=== PATIENT | female | born 1990 | race Caucasian/White ===

== ENCOUNTER 2018-06-14 21:54 | Inpatient (IN) ==
[2018-06-14 22:59] LABS: INFLUENZA A NEGATIVE (NEGATIVE); INFLUENZA B NEGATIVE (NEGATIVE)
[2018-06-14] MEDS ORDERED: LR 1,000 ML IV ONE (23:29)
[2018-06-14] MEDS ORDERED: ZOFRAN IV ONE (23:30)
[2018-06-15] LABS: BASO# 0.02 X1000 (0.0-0.2); BASO% 0.1 % (0.0-0.8); EOS# 0.16 X1000 (0.0-0.7); EOS% 1.1 % (0.0-10.0); HEMATOCRIT 40.5 % (37.0-47.0); HEMOGLOBIN 13.4 g/dL (12.0-16.0); IMM GRAN# 0.04 X1000 (0.0-0.04); IMM GRAN% 0.3 % (0.0-0.5); LYMPH# 1.52 X1000 (1.2-3.4); LYMPH% 10.8 % (20.5-51.1); MCH 27.2 PG (27-31); MCHC 33.1 g/dL (33-37); MCV 82.2 FL (81-99); MONO# 0.47 X1000 (0.11-0.59); MONO% 3.3 % (1.7-9.3); NEUT# 11.92 X1000 (1.4-6.5); NEUT% 84.4 % (42.2-75.2); PLT 195 X1000 (130-400); RBC 4.93 XMIL (4.2-5.4); RDW 15.2 % (11.5-14.5); WBC 14.13 X1000 (4.8-10.8)
[2018-06-15 00:08] LABS: INR 0.92; PROTIME 12.8 Seconds (11.0-16.0)
[2018-06-15 00:09] LABS: PTT 29.7 Seconds (22.3-41.8)
[2018-06-15 00:13] LABS: AGAP 14; ALBUMIN 4.1 g/dL (3.5-5.0); ALKALINE PHOSPHATASE 51 U/L (32-104); BUN 8 mg/dL (8-22); CALCIUM 9.5 mg/dL (8.8-10.2); CHLORIDE 104 mmol/L (98-107); COSMO 284; CREATININE 0.6 mg/dL (0.5-0.9); ESTIMATED GFR > 60; GLUCOSE 105 mg/dL (70-104); GOT 21 U/L (10-30); GPT 25 U/L (10-36); LIPASE 20 U/L (13-60); MAGNESIUM 1.9 mg/dL (1.5-2.7); POTASSIUM 3.9 mmol/L (3.5-5.1); SODIUM 143 mmol/L (136-145); TCO2 24 mmol/L (25-35); TOTAL PROTEIN 7.4 g/dL (6.3-8.3)
[2018-06-15] MEDS ORDERED: REGLAN IV ONE (00:41)
[2018-06-15 00:53] LABS: URINE SOURCE CLEAN CATCH
[2018-06-15 01:06] LABS: BILIRUBIN URINE NEGATIVE (NEGATIVE); BLOOD URINE TRACE (NEGATIVE); CLARITY VERY CLOUDY (CLEAR); COLOR YELLOW; GLUCOSE URINE NEGATIVE (NEGATIVE); KETONE URINE 2+(Moderate) mg/dL (NEGATIVE); LEUKOCYTES URINE 1+ (NEGATIVE); NITRITE URINE NEGATIVE (NEGATIVE); PROTEIN URINE NEGATIVE (NEGATIVE); UROBILINOGEN URINE NORMAL
[2018-06-15 01:20] LABS: URINE EPITHELIAL CELLS <10 /HPF (<10); URINE RBC <10 /HPF (<10); URINE WBC <10 /HPF (<10)
[2018-06-15 01:21] LABS: URINE BACTERIA 4+ /HFP; URINE SMALL ROUND CELLS TRANSITIONAL PRESENT
[2018-06-15] MEDS ORDERED: ZOSYN 3.375 GM in NS 50 ML IV ONE (02:15)
[2018-06-15] MEDS ORDERED: LR 1,000 ML IV ONE (02:17)
--- NOTE | 2018-06-15 02:25 | PROVIDER DOCUMENTATION ---
This chart was entered by Marta Segovia Scribe, acting as scribe for Moe Brunson MD. HPI-General Adult - General Chief Complaint: Vomiting Stated Complaint: vomiting Time Seen by Provider: 06/14/18 22:48 Source: patient Allergies/Adverse Reactions: Patient Allergies Allergy/AdvReac Type Severity Reaction Status Date / Time hydrocodone AdvReac VOMITING Verified 06/13/18 18:42 Home Medications: Home Medication List Medication Instructions Recorded Confirmed Last Taken Type Ibuprofen [Motrin] 200 mg PO DAILY 06/13/18 06/13/18 06/13/18 History 4 po Nitrofurantoin Monohyd/M-Cryst 100 mg PO BID #14 cap 06/13/18 Unknown Rx [Macrobid 100 mg Capsule] Ondansetron [Zofran] 4 mg PO Q6H PRN PRN #20 tab 06/13/18 Unknown Rx - History of Present Illness -Gen Adult Nature of Presenting Problems: 28 y/o female patient presents to er with c/o vomiting, nausea and abdominal pain . Pt went to [facility] yesterday for same symptoms and was diagnosed with presumed uti. Pt was prescribed Macrobid but has not improved Location of Pain/Injury: reports: abdomen, generalized Quality of Pain: reports: aching Severity: reports: severe Onset/Duration: reports: 24 hours ago Timing: reports: getting worse Associated Symptoms: reports: nausea, vomiting Recently seen or treated by another doctor?: Yes Review of Systems - Adult - REVIEW OF SYSTEMS - ADULT Constitutional: reports: see HPI. denies: fever, fatique Eyes: reports: no symptoms reported Ears, Nose, Mouth & Throat: reports: no symptoms reported Cardiovascular: reports: no symptoms reported Respiratory: reports: no symptoms reported Gastrointestinal: reports: abdominal pain, nausea, vomiting. denies: constipation, diarrhea Genitourinary: reports: no symptoms reported Musculoskeletal: reports: no symptoms reported Integumentary: reports: no symptoms reported Neurological: reports: no symptoms reported Psychiatric: reports: no symptoms reported Endocrine: reports: no symptoms reported Hematologic/Lymphatic: reports: no symptoms reported Allergic/Immunologic: reports: no symptoms reported All Other Systems: Reviewed and Negative Past History - Adult - PAST MEDICAL HISTORY-ADULT Review of Records: reports: Old Records Reviewed, Nursing Assessment Review, Medications Reviewed, Social history reviewed & non-contributory. Major Childhood Illnesses: reports: denies history Cardiovascular: reports: denies history Respiratory: reports: denies history Gastrointestinal: reports: denies history Obstetrical/Gynecological: reports: denies history Genitourinary: reports: denies history Musculoskeletal: reports: denies history Neurological: reports: denies history Endocrine/Immune: reports: hypoglycemia Other Conditions: reports: denies history - PRIOR SURGERIES/PROCEDURES Surgical/Procedure History: reports: other (left knee 3x) - IMMUNIZATION STATUS Childhood Immunizations: See Nurse Assessment Flu Vaccine: See Nurse Assessment - FAMILY HISTORY Family History: reviewed, not pertinent - SOCIAL HISTORY Smoking: cigarettes, less than 1 pack/day Provider spent 3-5 mins advising pt. on dangers of tobacco.: Discussed manners to quit use, and f/u contacts for add'l counseling. Physical Exam-General - PHYSICAL EXAM-ADULT Initial Vital Signs Reviewed: Yes - CONSTITUTIONAL General Appearance: alert, severe distress, obese - EYES Eyes: PERRL/EOMI, pink conjunctivae - HEAD, EARS, NOSE, MOUTH & THROAT HENMT: normocephalic/atraumatic, moist mucous membranes - NECK Neck: non-tender, full range of motion, supple - RESPIRATORY Respiratory: chest non-tender, lungs clear, normal breath sounds - CARDIOVASCULAR Cardiovascular: normal peripheral pulses, regular rate, rhythm - GASTROINTESTINAL (ABDOMEN) Abdominal Exam: normal bowel sounds, guarding (mild), tenderness (generalized but more in mid abdomen). 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, grossly normal - PSYCHIATRIC Psych/Mental Status: normal thought content, normal thought process, oriented x 3 Progress - PLAN OF CARE/RESULTS Progress/Plan/Lab Results: Vital Signs - 8 hr 06/14/18 22:02 Temperature 98.0 F Pulse Rate 70 Respiratory Rate 20 Blood Pressure 141/82 O2 Sat by Pulse Oximetry 100 Laboratory Results - last 24 hr 06/14/18 22:05 Influenza A (Rapid) NEGATIVE Influenza B (Rapid) NEGATIVE Orders Category Date Time Status Flu [INFLUENZA SCREEN PL] Stat Lab 06/14/18 22:05 Completed Result Diagrams: 06/14/18 23:04 06/14/18 23:04 - CT/MRI 1 CT Study: Abdomen, Pelvis Impression: Abnormal (subtle increased density in lateral aspect of gallbladder ; consideration include gallstone or polyp; consider right upper quadrant ultrasound) - CONSULTS/PCP/HOSPITALIST Notification #1 *Consult/PCP/Hospitalist*: Dr. Rodgers Time Discussed: 02:14 Consult Disposition: Admit Departure - Departure Date of Disposition Decision: 06/15/18 Time of Disposition Decision: 02:14 DIAGNOSIS: Acute cholecystitis Abdominal pain Qualifiers: Abdominal location: unspecified location Qualified Code(s): R10.9 - Unspecified abdominal pain Disposition: ADMITTED INPATIENT 09 Certified Medical Emergency: Emergent Condition: Serious - Critical Care Note This patient required my direct & personal management of CC.: No Attestation - Physician/ SARAN Attestation Patient care was provided by Advanced Practice Provider:: No The physician spent face to face time with patient:: Yes Advanced Practice Provider documentation review:: Supervising physician onsite and consulted in the evaluation and care of this patient. The physician did have a face to face encounter with the patient. This chart was documented by the indicated scribe, (Marta Segovia Scribe) and accurately reflects the services I performed and decisions made by me, Moe Brunson MD, as attested by the provider's signature.
[2018-06-15] MEDS ORDERED: NS 1,000 ML IV ONE (02:47)
[2018-06-15] MEDS: MORPHINE IV PRN ×9 (03:10→21:53)
[2018-06-15] MEDS: ZOFRAN IV PRN ×4 (04:40→17:14)
--- NOTE | 2018-06-15 08:53 | Diag Imaging Result Doc PS360 ---
EXAM: CT ABD/PELVIS W/IV CONT ONLY 06/14/2018 HISTORY: abdominal pain; vomiting TECHNIQUE: This exam was performed using automated exposure control, adjustment of mA or kV according to patient size, and/or use of iterative reconstruction technique. COMMENT: There is minimal platelike atelectasis in the medial portion of the right middle lobe which is slightly worse than on 06/13/2018. The liver, spleen, adrenal glands, and pancreas are normal in appearance. The kidneys are without evidence of hydronephrosis or mass. There are no apparent gallstones in the gallbladder is not inflamed in appearance. There is no evidence of bowel obstruction. The aorta is normal in caliber. There is no evidence of significant adenopathy. Pelvis: The appendix is normal in appearance. There is free fluid in the cul-de-sac. Both ovaries are somewhat prominent the left measuring in excess of 4 cm in greatest dimension the right measuring 3.1 cm in diameter. These findings were also present at the time the previous study. The urinary bladder is not distended. The regional skeleton is intact. IMPRESSION: Nonspecific free pelvic fluid. No significant change since 06/13/2018. Electronically signed by Gamaliel Abad 06/15/2018 8:50 AM
[2018-06-15] MEDS ORDERED: VENTOLIN HFA INH PRN (12:14)
[2018-06-15] MEDS: LR 1,000 ML IV SCH ×2 (12:38→22:04)
[2018-06-15] MEDS: ZOSYN 3.375 GM in NS 50 ML IV SCH ×2 (12:38→17:59)
[2018-06-15] MEDS: PROTONIX IV SCH (12:39)
[2018-06-15] MEDS: LOVENOX SUBQ SCH (12:39)
[2018-06-15] MEDS: SODIUM CHLORIDE 0.9% INJ SCH (12:39)
--- NOTE | 2018-06-15 15:07 | HISTORY AND PHYSICAL ---
DATE: 06/15/2018 HISTORY OF PRESENT ILLNESS: This is a 28-year-old female she had vague upper abdominal and lower abdominal discomfort over the last several days. She had been in the ER twice, re-presented last night for further evaluation. She was initially treated for urinary tract infection but had no improvement in her symptoms. She has had worsening nausea associated with this and even some emesis. She denies jaundice or fevers. No blood in her stools and bowel function otherwise been normal for her. She is admitted for further workup. CT scan showed nonspecific pelvic fluid, enlarged ovaries bilaterally, but no other acute inflammatory processes. Her appendix was normal. Gallbladder showed no inflammation or biliary dilation or pancreatic lesions. MEDICAL HISTORY: Significant for asthma and obesity and anxiety. SURGICAL HISTORY: She has had knee surgeries but no abdominal operation. SOCIAL HISTORY: She does smoke 1/2 pack a day. No alcohol. 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 FAMILY HISTORY: Negative for cancer. REVIEW OF SYSTEMS: Ten point negative. PHYSICAL EXAM: Temperature 99.3 degrees, pulse 71, blood pressure 128/46, oxygen saturation 97% on room air.General: She is alert in no acute distress. HEENT: No scleral icterus or cervical masses. Cardiovascular: Normal rate. Pulmonary: No increased work of breathing. Abdomen: Obese but soft. There is no peritonitis, vague tenderness over the upper quadrants. Integument: Warm dry without jaundice. Psychiatric: Appropriate affect. Neurologic: No gross deficits . Lymphatic: No cervical, axillary or inguinal adenopathy. Peripheral vascular: She does have some lower extremity edema. LABS: White count is 14, hematocrit 40, platelets 195,000, INR 0.92. Creatinine 0.6. LFTs are normal. Lipase normal, lactate is normal. Urinalysis does have some white blood cells. Influenza is negative. I cannot tell if test was checked. Ultrasound has been done but report pending. ASSESSMENT AND PLAN: A 28-year-old female with vague abdominal discomfort. Symptoms do sound consistent with gallbladder etiologies, could be a gastroenteritis type picture or even a gastritis type picture. She does have some esophagitis symptoms as well. Will continue her workup. She has been told she has had a HIDA scan that was normal in the past. Her CT scan is unrevealing other than some prominent ovaries possibly this was an ovarian cyst, could be a urinary tract infection as well. Will check her results of her ultrasound and perform a HIDA as indicated and maybe even upper endoscopy. Will resume her home medications, on antibiotics for urinary tract infection, will keep her NPO, continue her hydration, antiemetics. cc: Ryan Rodgers MD
[2018-06-15] MEDS: REGLAN IV SCH (21:54)
[2018-06-16] MEDS: PROTONIX IV SCH ×2 (01:27→13:19)
[2018-06-16] MEDS: ZOSYN 3.375 GM in NS 50 ML IV SCH ×4 (01:27→17:25)
[2018-06-16] MEDS: MORPHINE IV PRN ×5 (06:08→21:52)
[2018-06-16] MEDS: REGLAN IV SCH ×3 (06:08→16:59)
[2018-06-16] MEDS: LR 1,000 ML IV SCH ×3 (06:41→17:44)
[2018-06-16] MEDS: OFIRMEV 1000 MG/ISOTONIC SOLN 1,000 MG/100 ML BOTTLE IV PRN (08:22)
[2018-06-16] MEDS: ZOFRAN IV PRN ×3 (08:31→21:51)
--- NOTE | 2018-06-16 10:06 | Diag Imaging Result Doc PS360 ---
US GB < RUQ (LIMITED) - 06/15/2018 INDICATION: abdominal pain; vomiting; r/o cholecystitis TECHNIQUE: COMPARISON: CT from 06/15/2018 FINDINGS: Liver, gallbladder, pancreas, and right kidney are normal. Common bile duct measures 4 mm. Aorta, IVC, and main portal vein are patent. IMPRESSION: Negative exam. Electronically signed by Shon Khan 06/16/2018 10:04 AM
[2018-06-16] MEDS: BREO ELLIPTA 100/25 MCG INH INH SCH (11:34)
[2018-06-16] MEDS: LOVENOX SUBQ SCH (13:18)
[2018-06-16] MEDS: SODIUM CHLORIDE 0.9% INJ SCH (13:19)
--- NOTE | 2018-06-16 14:16 | GENERAL SURGERY PROGRESS NOTE ---
DATE: 06/16/2018 SUBJECTIVE: She says she is hungry and thirsty. No fevers. No tachycardia. OBJECTIVE: Vital signs: Blood pressure 115/56, oxygen saturation 97%. General: She is alert. Abdomen: Soft. Cardiovascular: Normal rate. Pulmonary: No increased work of breathing. LABS: Pending. IMAGING: Abdominal ultrasound shows no acute abnormality. No gallstones. No biliary dilation. ASSESSMENT AND PLAN: This is a 28-year-old female with nausea, vomiting, epigastric abdominal discomfort. We will check a HIDA scan. I have also asked Dr. Barbour to see her to evaluate for possible gastric or esophageal etiology. In the meantime, we will continue antibiotics for UTI. She is on a PPI, Reglan. We will give her some sips of liquids after her HIDA scan. cc: Ryan Rodgers MD
--- NOTE | 2018-06-16 14:25 | GASTROENTEROLOGY CONSULTATION ---
DATE: 06/16/2018 REFERRING PHYSICIAN: Dr. Ryan Rodgers. REASON FOR CONSULTATION: Abdominal pain, nausea, and vomiting. HISTORY: Ms. Gaspar is a 28-year-old female, who has new onset of symptoms in the form of abdominal pain in the periumbilical region, right upper quadrant, and radiating to the back for the last 3 days. She initially came [facility] but did not get any better, and she came to the ER on Saturday night and was given IV pain medicine, IV antiemetics, fluids and was discharged home. Her symptoms persisted, and she came to the ER on 06/14/2018 for admission. She is currently being worked up for gallbladder pathology. So far, her ultrasound of the abdomen is negative, and the CT scan of the abdomen and pelvis was also negative for any kind of gallbladder pathology. The patient complains of abdominal discomfort in the periumbilical, right upper quadrant, the right upper back. Before the onset of these symptoms, she experienced discomfort in the left lower side of the abdomen as well. She complains of intermittent nausea and vomiting. She denies any vomiting blood or passing blood in the stools. She has not had a bowel movement since Saturday, 3 days ago. She denies any previous history of constipation or diarrhea. The patient is scheduled for HIDA scan per General Surgery. Gastroenterology was consulted for further management. PAST MEDICAL HISTORY: Asthma, obesity, anxiety. The patient is trying to lose weight. She has cut down sodas. PAST SURGICAL HISTORY: Knee surgeries. SOCIAL HISTORY: She smokes half a pack a day. No history of alcohol. 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 FAMILY HISTORY: No history of any Crohn's disease. REVIEW OF SYSTEMS: She denies any fevers, rigors, chills, chest pain, shortness of breath, dyspnea. Denies any vomiting blood or passing blood in the stools. Denies any major arthritis. Does take NSAIDs, like ibuprofen, as needed. She does drink tea every day. Denies any neurologic complaints. MEDICATIONS IN THE HOSPITAL: 1. Lovenox. 2. Fluticasone/vilant 1 puff inhaled daily. 3. Lactate Ringer 100 mL/hr. 4. Reglan 5 mg IV q.6 hours. 5. Morphine 2 mg IV q. 2 hours. 6. Tylenol IV q.6 hours. 7. Zofran. 8. Protonix IV b.i.d. 9. Zosyn IV q.6 hours. She is currently n.p.o. PHYSICAL EXAMINATION: Vital Signs: Temperature 98.3, pulse 59, respiratory rate 18, blood pressure 170/66, saturating 97% on room air. Body weight of 285 pounds. BMI of 44.6 kg. General: She is obese, lying in bed in no acute distress. HEENT: No pallor. No icterus. Pupils equal and reactive to light. Neck: Supple. Abdomen: Obese. Discomfort in the pelvic region. No rebound or guarding. Extremities: No cyanosis, clubbing, edema. Neurologic: She is alert, awake, oriented x3. LABORATORY DATA: Hemoglobin and hematocrit is 13.4 and 40.5, white count of 14.13, platelet count of 195,000. INR 0.92. PT of 12.8. PTT of 29.7. Sodium 140, potassium 3.9, chloride 104, bicarb 24, anion gap of 14. BUN of 8, creatinine 0.6, glucose of 105. Calcium 9.5, magnesium 1.9. Total bilirubin is 0.4. AST 21, ALT 25. Alkaline phos 51. Total protein 7.4. Albumin of 4.1. Lipase of 20. Lactate of 1.7. Urinalysis showing cloudy 2+ ketones and 1 + white cells. Flu screen is negative. Blood culture x2 have been drawn and currently pending. Ultrasound and CT scan as described in HPI negative. Old CT scan showed evidence of nonspecific free pelvic fluid and evidence of prominent ovary on the left side measuring 4 cm and the right side measuring 3.1 cm. Plate-like atelectasis in the medial portion of the right middle lobe was noted. IMPRESSION AND PLAN: 1. Abdominal pain. 2. Nausea and vomiting. 3. Obesity. RECOMMENDATIONS: We will follow results of HIDA scan. We will keep her on IV fluids, IV Proton pump inhibitors. She has been given a trial of Reglan. We will need to hold Reglan if patient develops side effects like tardive dyskinesia. We will schedule her for EGD tomorrow under anesthesia to evaluate her symptoms. The risks, benefits, indications, and alternatives discussed with the patient and all questions answered. The patient will continue to lose weight. She will continue follow gastroesophageal reflux life changes. Further recommendations pending hospital course. The above plan was discussed with the patient and all questions were answered. Please call us with any further questions. cc: MD Ryan Ramos MD MTDD
--- NOTE | 2018-06-16 16:56 | Diag Imaging Result Doc PS360 ---
HIDA SCAN W/ EJECTION FRACTION - 06/16/2018 INDICATION: abdominal pain COMPARISON: None FINDINGS: 5.5 millicuries of Choletec was administered. There is normal uptake and clearance by the liver. There is normal excretion into the gallbladder and small bowel. A fatty meal was given. The gallbladder ejection fraction is 28%. IMPRESSION: Slightly subnormal gallbladder ejection fraction, which may represent chronic cholecystitis or biliary dyskinesia. An abnormally low ejection fraction (less than 35%) can be present in patients without gallbladder dyskinesis or chronic cholelithiasis to have other medical conditions. These include but are not limited to, patients with diabetic mellitus, irritable bowel syndrome, , gastroenteritis. peptic ulcer disease, and patients receiving morphine or nifedipine. Electronically signed by Shon Khan 06/16/2018 4:53 PM
[2018-06-17] MEDS: PROTONIX IV SCH (00:52)
[2018-06-17] MEDS: SODIUM CHLORIDE 0.9% INJ SCH (00:52)
[2018-06-17] MEDS: ZOSYN 3.375 GM in NS 50 ML IV SCH ×4 (00:52→18:04)
[2018-06-17] MEDS: REGLAN IV SCH ×2 (00:52→06:08)
[2018-06-17] MEDS: MORPHINE IV PRN ×8 (01:04→22:16)
[2018-06-17] MEDS: BREO ELLIPTA 100/25 MCG INH INH SCH (08:22)
[2018-06-17] MEDS: ZOFRAN IV PRN ×4 (09:02→22:16)
[2018-06-17] MEDS ORDERED: DIPRIVAN 1% ONE (10:03)
[2018-06-17] MEDS ORDERED: XYLOCAINE-MPF 2% ONE (10:12)
--- NOTE | 2018-06-17 10:43 | OPERATIVE NOTE ---
PROCEDURE DATE : 06/17/2018 PROCEDURE PERFORMED: Upper gastrointestinal endoscopy. PROVIDER: Pb Sesay MD INDICATION: Nausea, vomiting, abdominal pain. MEDICATIONS: Monitored Anesthesia Care DESCRIPTION OF PROCEDURE: Prior to the procedure, a history and physical was performed, and the patient's medications and allergies were reviewed. The patient's tolerance to previous anesthesia was also reviewed. The risks and benefits of the procedure and the sedation options and risks were discussed with the patient. All questions were answered, and informed consent was obtained. After reviewing the risks and benefits, the patient was deemed in satisfactory condition to undergo the procedure. After informed consent was obtained, the endoscope was passed under direct visualization. Throughout the procedure, the patient's blood pressure, pulse and oxygen saturations were monitored continuously. The endoscope was introduced through the mouth and advanced to the second part of the duodenum. The upper GI endoscopy was accomplished without difficulty. The patient tolerated the procedure well. COMPLICATIONS: No immediate complications. ESTIMATED BLOOD LOSS: Minimum. FINDINGS: - Normal esophagus - Small hiatal hernia seen on retroflexion in the stomach. Random gastric biopsies were obtained to rule out H. pylori - Normal duodenum. IMPRESSION: - Small hiatal hernia - There was no etiology on upper GI endoscopy to explain the patient's nausea, vomiting and abdominal pain. RECOMMENDATIONS: 1. We will transition the patient's IV pantoprazole to p.o. once daily. 2. Continue antiemetics as needed. 3. The patient is okay to be discharged from a GI perspective with outpatient followup. I do not think that her findings on her HIDA scan would explain her symptoms, although empiric cholecystectomy may be warranted in the future if the patient does not respond to conservative management. cc: Ryan Rodgers MD [facility]
[2018-06-17] MEDS: LR 1,000 ML IV SCH ×2 (11:32→13:06)
[2018-06-17] MEDS: LOVENOX SUBQ SCH (13:06)
--- NOTE | 2018-06-17 19:07 | GENERAL SURGERY PROGRESS NOTE ---
DATE: 06/17/2018 SUBJECTIVE: Still having some nausea. The pain is better. No fevers. No tachycardia. She had an EGD this morning that did not show any acute findings. LABORATORY: No new labs yet this morning. She had a HIDA scan that showed a depressed ejection fraction. ASSESSMENT AND PLAN: This is a 28-year-old female with vague upper abdominal discomfort, nausea. She has biliary dyskinesia. The stomach is clear of mucosal lesions. Discussed with her risks of bleeding, infection, damage to surrounding structures, persistent symptoms, bile leak, conversion to open, possibility that she will have residual symptoms even though her gallbladder appears [*] on HIDA scan. She understands and consents to laparoscopic cholecystectomy. Right now we have her posted for afternoon. We will make her n.p.o. tomorrow night. cc: Ryan Rodgers MD
[2018-06-18] MEDS: LR 1,000 ML IV SCH ×3 (01:09→13:22)
[2018-06-18] MEDS: ZOSYN 3.375 GM in NS 50 ML IV SCH ×7 (01:09→23:20)
[2018-06-18] MEDS: ZOFRAN IV PRN ×5 (03:30→22:12)
[2018-06-18] MEDS: PROTONIX PO SCH ×2 (05:06→07:20)
[2018-06-18] MEDS: MORPHINE IV PRN ×6 (05:12→21:54)
[2018-06-18] MEDS: BREO ELLIPTA 100/25 MCG INH INH SCH ×2 (07:37→08:12)
[2018-06-18] MEDS: LOVENOX SUBQ SCH (16:11)
[2018-06-19] MEDS: MORPHINE IV PRN ×8 (00:04→21:49)
[2018-06-19] MEDS: LR 1,000 ML IV SCH ×2 (02:12→16:48)
[2018-06-19] MEDS: ZOFRAN IV PRN ×4 (02:14→21:53)
--- NOTE | 2018-06-19 02:17 | GENERAL SURGERY PROGRESS NOTE ---
DATE: 06/18/2018 SUBJECTIVE: Still having some nausea. Pain is better. No fevers. OBJECTIVE: Vital Signs: Pulse 62, blood pressure 122/59, oxygen saturations is 98%. General: She is alert. HEENT: There is no jaundice. Cardiovascular: Normal rate. Abdomen: Soft. Slight tenderness in the upper quadrant. No peritonitis. Integument: Warm and dry. LABORATORY DATA: No new labs. I will order some for in the morning. IMAGING: I have reviewed her endoscopic reports and her imaging. ASSESSMENT AND PLAN: This is a 28-year-old female with biliary dyskinesia. I suspect this is the source of her pain. We will treat her urinary tract infection adequately if she continues to feel poorly. I discussed the risks, benefits and alternatives including bleeding, infection, damage to surrounding structures, bile leak, persistent symptoms, conversion to open. She consents to laparoscopic cholecystectomy and cholangiogram tomorrow. We will make her nothing per oral. cc: Ryan Rodgers MD
[2018-06-19] MEDS: ZOSYN 3.375 GM in NS 50 ML IV SCH ×2 (05:27→13:32)
[2018-06-19] MEDS: PROTONIX PO SCH ×2 (05:33→19:25)
[2018-06-19 06:35] LABS: BASO# 0.01 X1000 (0.0-0.2); BASO% 0.2 % (0.0-0.8); EOS# 0.24 X1000 (0.0-0.7); EOS% 3.9 % (0.0-10.0); HEMOGLOBIN 11.7 g/dL (12.0-16.0); LYMPH# 1.69 X1000 (1.2-3.4); LYMPH% 27.3 % (20.5-51.1); MCHC 32.5 g/dL (33-37); MCV 82.9 FL (81-99); MONO# 0.45 X1000 (0.11-0.59); MONO% 7.3 % (1.7-9.3); MPV 12.5 FL (7.4-10.4); NEUT# 3.79 X1000 (1.4-6.5); NEUT% 61.3 % (42.2-75.2); PLT 145 X1000 (130-400); RBC 4.34 XMIL (4.2-5.4); RDW 14.1 % (11.5-14.5); WBC 6.18 X1000 (4.8-10.8)
[2018-06-19 06:44] LABS: AGAP 14; ALB/GLOB RATIO 1.3; ALBUMIN 3.8 g/dL (3.5-5.0); ALKALINE PHOSPHATASE 41 U/L (32-104); BUN 4 mg/dL (8-22); CALCIUM 8.9 mg/dL (8.8-10.2); CHLORIDE 104 mmol/L (98-107); COSMO 279; CREATININE 0.6 mg/dL (0.5-0.9); ESTIMATED GFR > 60; GLUCOSE 87 mg/dL (70-104); GOT 41 U/L (10-30); GPT 50 U/L (10-36); POTASSIUM 3.3 mmol/L (3.5-5.1); SODIUM 142 mmol/L (136-145); TCO2 24 mmol/L (25-35); TOTAL PROTEIN 6.7 g/dL (6.3-8.3)
--- NOTE | 2018-06-19 12:28 | GASTROENTEROLOGY PROGRESS NOTE ---
DATE: 06/19/2018 SUBJECTIVE: Resting in bed. She is in pain in the right upper quadrant. She is requesting IV pain medication. She is scheduled for cholecystectomy today with Dr. Rodgers. OBJECTIVE: Vital signs: Temperature 98.8 degrees, pulse 63, respiratory rate 18, blood pressure 132/72, saturating 92% on room air. General Appearance: Morbidly obese, lying in bed, currently in pain. HEENT: Mild pallor. No icterus. Neck: Supple. Abdomen: Discomfort in the right upper quadrant. No rebound. Extremities: No cyanosis or clubbing. Neurologic: She is alert, awake, and oriented x3. LABORATORY DATA: Hemoglobin and hematocrit 11.7 and 36, white count 6.1, platelet count 145,000. Sodium 142, potassium 3.3, chloride 104, bicarb 24, anion gap 14, BUN 4, creatinine 0.6, glucose 87, calcium 8.9, total bilirubin 0.5, AST 41, ALT 50, alkaline phosphatase 41, total protein 6.7, albumin 3.8. IMPRESSION AND PLAN: 1. Gallbladder/biliary dyskinesia. She is scheduled for cholecystectomy today with Dr. Rodgers. 2. She had an EGD with Dr. Sesay, which showed evidence of hiatal hernia. She will take small frequent meals and continue to follow gastroesophageal reflux lifestyle changes. 3. Abdominal pain. She will be getting intravenous pain control. 4. Nausea. She will continue on intravenous antiemetics. 5. Gastric biopsy results showed negative Helicobacter pylori. 6. Obesity. Aware. The patient will need to lose weight. Will discuss more as an outpatient. Above plan discussed with the patient and all questions answered. Please call us with questions. cc: MD Ryan Ramos MD
[2018-06-19] MEDS ORDERED: LR 1,000 ML ONE ×2 (13:10→15:31)
[2018-06-19] MEDS ORDERED: SODIUM CHLORIDE 0.9% ONE (13:10)
[2018-06-19] MEDS ORDERED: SENSORCAINE-MPF 0.5%/EPI 1:200,000 ONE (13:10)
[2018-06-19] MEDS ORDERED: QUELICIN (DOSE) ONE (13:31)
[2018-06-19] MEDS ORDERED: ROBINUL ONE ×2 (13:31→14:08)
[2018-06-19] MEDS ORDERED: XYLOCAINE-MPF 2% ONE (13:31)
[2018-06-19] MEDS ORDERED: FENTANYL ONE ×2 (13:32→14:11)
[2018-06-19] MEDS ORDERED: DIPRIVAN 1% ONE (13:32)
[2018-06-19] MEDS ORDERED: ZOFRAN ONE (13:58)
[2018-06-19] MEDS ORDERED: DECADRON ONE (13:58)
[2018-06-19] MEDS ORDERED: ZEMURON ONE (14:07)
[2018-06-19] MEDS ORDERED: NEOSTIGMINE ONE (14:08)
[2018-06-19] MEDS: DILAUDID ONE ×4 (14:53→15:10)
--- NOTE | 2018-06-19 14:55 | Diag Imaging Result Doc PS360 ---
EXAM: OPERATIVE CHOLANGIOGRAM 06/19/2018 HISTORY: GALLBLADDER DISEASE TECHNIQUE: intraoperative cholangiogram COMMENT: There is contrast opacification of the common bile duct without evidence of filling defect or obstruction. IMPRESSION: No evidence retained stones. Electronically signed by Gamaliel Abad 06/19/2018 2:52 PM
--- NOTE | 2018-06-19 15:27 | OPERATIVE NOTE ---
PROCEDURE DATE: 06/19/2018 PREOPERATIVE DIAGNOSIS: Biliary dyskinesia. POSTOPERATIVE DIAGNOSIS: Biliary dyskinesia. PROCEDURE PERFORMED: Laparoscopic cholecystectomy with cholangiogram. ESTIMATED BLOOD LOSS: 5 mL. SPECIMENS: Gallbladder. ANESTHESIA: General. SURGEON: Ryan Rodgers MD ELEVATOR REPAIRER APPRENTICE: Kin Sidhu MD, who was present for the entirety of the case. He facilitated with retraction, exposure, and identification of anatomy. INDICATIONS: A 28-year-old female with epigastric abdominal pain, nausea and vomiting for several days. Workup showed a depressed ejection fraction on HIDA, but otherwise unremarkable. OPERATIVE NOTE: Risks, benefits, and alternatives discussed with the patient and she consented to the procedure, seen preoperatively and surgical site was confirmed and marked. She was taken to the operating room and placed in the supine position. General anesthesia was induced without complication. All bony prominences were padded her abdomen was prepped with chlorhexidine solution and draped in the usual fashion. After time-out, we made a supraumbilical midline incision, carried this down to the fascia, and incised the fascia. There was a very deep wound given the amount of subcutaneous adipose tissue, but we were able to enter the abdomen safely and place a 12 mm Norbert trocar. We insufflated the abdomen to 15 mmHg and placed her in reverse Trendelenburg, left side down. Three additional trocars 5 mm were placed, 1 in the epigastrium, 1 in the midclavicular line off the costal margin, and 1 more laterally. The gallbladder was grasped and retracted cephalad, starting laterally and progressing medially. We stripped down the peritoneum, identifying the infundibulocystic junction. There was a small cystic artery that coursed through this, that we doubly clipped and divided, and then widely dissected out this triangle, including the lower third of the gallbladder, confirming our anatomy. There was liver visualized through this triangle with no other tubular structures in the interval. We placed a clip on the gallbladder side, made a ductotomy, and performed cholangiogram with the above findings. After satisfactory cholangiogram, we triply clipped the cystic duct and began to remove the gallbladder from the gallbladder fossa. There was a posterior cystic artery, very small, that entered directly in the gallbladder, that we doubly clipped and divided. We removed the gallbladder intact without rupture and place it in an EndoCatch bag. We irrigated the abdomen and confirmed hemostasis in the gallbladder fossa. We removed the remaining trocars under direct visualization, noted hemostasis, and removed the gallbladder, after deflating the abdomen, through the umbilical incision. The fascia was closed with interrupted 0 Vicryl sutures. The skin was closed with 4-0 Monocryl in subcuticular fashion. Dermabond was applied. Counts were correct. She was awakened and transferred to recovery. I spoke to the family. cc: Ryan Rodgers MD
[2018-06-19] MEDS: BREO ELLIPTA 100/25 MCG INH INH SCH (16:46)
[2018-06-19] MEDS: LOVENOX SUBQ SCH (16:47)
[2018-06-19] MEDS: OFIRMEV 1000 MG/ISOTONIC SOLN 1,000 MG/100 ML BOTTLE IV PRN (17:35)
[2018-06-20] MEDS: MORPHINE IV PRN ×5 (03:59→15:38)
[2018-06-20] MEDS: ZOFRAN IV PRN ×3 (03:59→15:38)
[2018-06-20] MEDS: LR 1,000 ML IV SCH (03:59)
[2018-06-20] MEDS: PROTONIX PO SCH (06:22)
[2018-06-20] MEDS ORDERED: LR 1,000 ML IV SCH (07:00)
[2018-06-20] MEDS: BREO ELLIPTA 100/25 MCG INH INH SCH (08:32)
[2018-06-20] MEDS ORDERED: PERIDEX MT SCH (09:00)
[2018-06-20 13:05] VITALS: BP 127/64
[2018-06-20] MEDS: LOVENOX SUBQ SCH (13:27)
[2018-06-20] MEDS: OFIRMEV 1000 MG/ISOTONIC SOLN 1,000 MG/100 ML BOTTLE IV PRN (13:37)
--- NOTE | 2018-06-21 19:34 | DISCHARGE SUMMARY ---
ADMISSION DATE: 06/14/2018 DISCHARGE DATE: 06/20/2018 ADMITTING DIAGNOSIS: Is nausea and abdominal pain. POSTOP: Biliary dyskinesia. PROCEDURE PERFORMED: 1. Laparoscopic cholecystectomy with cholangiogram. 2. EGD. CONSULTANTS: GI Medicine Dr. Barbour and Shama. HPI: This 28-year-old female admitted for abdominal discomfort and nausea. She is found have urinary tract infection. Ultrasound and CT scan were unrevealing but her nuclear scan showed depressed ejection fraction. She was taken to the operating room on the 7th for above procedure. HOSPITAL COURSE: She was admitted, treated with antibiotics for urinary tract infection, no improvement her symptoms. She is unable to tolerate p.o. and required IV fluids and antiemetics. She was continued on prophylaxis and PPI. She had an EGD that showed no acute findings and after her HIDA scan showed depressed ejection fraction she was taken the operating room. Postoperatively she felt great, her incisions are intact, her abdomen soft and she is able tolerate a diet. She is felt safe for discharge. Followup appointments with me in 1 week. DISPOSITION: Home to self-care. Discharge instructions were given in written and verbal format. cc: Ryan Rodgers MD
== END 2018-06-20 17:07 | disposition home or self-care (01) | DRG 418 ==
LOC: P.ED 21:54 → 4N 21:55
PROVIDERS: ADMIT Surgery; ATTEND Surgery
CPT/HCPCS: 74177; 74300; 76705; 78227; 80053; 81001; 81025; 83605; 83690; 83735; 85025; 85610; 85730; 87040; 87275; 87276; 87804; 88304; 88305; 88312; 94640; 94761; 96365; 96375; 96376; 99285; A9270; A9537; C1751; C9113; J0131; J0330; J1100; J1170; J1650; J2270; J2405; J2543; J2765; J3010; J7030; J7120; Q9966; Q9967; S0164